=== PATIENT | female | born 1985 | race Caucasian/White ===

== ENCOUNTER 2017-04-09 18:19 | Emergency (ER) | payer BC, OTHER ==
[2017-04-09] MEDS ORDERED: methylPREDNISolone Acetate 40 mg/ml Vial ONE ×2 (22:46)
[2017-04-09] MEDS ORDERED: Azithromycin 250 MG TAB ONE (22:46)
[2017-04-09] MEDS ORDERED: Benzonatate 100 MG CAP ONE (22:46)
--- NOTE | 2017-04-09 23:38 | RAD ---
CHEST TWO VIEWS 04/09/17 The heart is normal in size and the lungs are clear. No infiltrate or effusion was seen. There is no sign of pneumonia. The trachea is midline. IMPRESSION: No acute thoracic finding. POS: HOME
== END 2017-04-09 23:12 | disposition home or self-care (01) ==
LOC: BURERS 18:19
DX: J01.90 Acute sinusitis, unspecified (principal); J45.909 Unspecified asthma, uncomplicated
CPT/HCPCS: 71020; 96372; J1030